=== PATIENT | female | born 1980 | race Caucasian/White ===

== ENCOUNTER → 2023-12-10 | Outpatient (CLI) | payer BC ==
[2023-12-10 17:03] LABS: HIV 1&2 SCREEN NEGATIVE (NEGATIVE)
[2023-12-10 17:10] LABS: HEPATITIS C VIRUS ABY INDEX < 0.02 INDEX (<0.8)
== END ==
LOC: M PLALAB 12:41
PROVIDERS: ATTEND Advanced Practice Midwife
DX: Z11.3 Encounter for screening for infections with a predominantly sexual mode of transmission (principal)

== ENCOUNTER → 2024-04-28 | Outpatient (CLI) | payer OTHER | LOC: M WHC 08:11 | PROVIDERS: ATTEND Family Medicine | DX: Z12.31 Encounter for screening mammogram for malignant neoplasm of breast (principal); R92.333 Mammographic heterogeneous density, bilateral breasts; N63.11 Unspecified lump in the right breast, upper outer quadrant; N63.42 Unspecified lump in left breast, subareolar ==

== ENCOUNTER → 2024-05-09 | Outpatient (CLI) | payer OTHER | LOC: M WHC 13:50 | PROVIDERS: ATTEND Family Medicine | DX: R92.8 Other abnormal and inconclusive findings on diagnostic imaging of breast (principal); N63.22 Unspecified lump in the left breast, upper inner quadrant; N63.11 Unspecified lump in the right breast, upper outer quadrant | CPT/HCPCS: 76641; 76642; 77066; G0279 ==

== ENCOUNTER → 2024-05-26 | Outpatient (CLI) | payer OTHER ==
[2024-05-26 08:32] VITALS: TEMP 98.6
[2024-05-26 09:26] VITALS: BP 110/78; O2SAT 100
== END ==
LOC: M WHCPRO 08:30
PROVIDERS: ATTEND Family Medicine
DX: R92.8 Other abnormal and inconclusive findings on diagnostic imaging of breast (principal); N63.21 Unspecified lump in the left breast, upper outer quadrant

== ENCOUNTER → 2024-06-01 | Outpatient (CLI) | payer OTHER | LOC: M RAD 06:32 | PROVIDERS: ATTEND Orthopaedic Surgery | DX: M23.303 Other meniscus derangements, unspecified medial meniscus, right knee (principal) ==

== ENCOUNTER 2024-09-20 10:21 | Day surgery (SDC) | payer BC, OTHER ==
[~2024-09-20] VITALS: Ht 170.2 cm; Wt 71.5 kg
[~2024-09-20 10:21] MED LIST: ONDA-83 PO
[2024-09-20] MEDS: SCOPOLAMINE 1MG TRANSDERMAL PATCH TOP ONE (10:54)
[2024-09-20] MEDS ORDERED: ROCURONIUM BROMIDE 50MG/5ML VIAL As Ordered ONE (11:53)
[2024-09-20] MEDS ORDERED: LIDOCAINE 2% 100 MG/5 ML SDV (FOR ANES.) As Ordered ONE (11:53)
[2024-09-20] MEDS ORDERED: MIDAZOLAM INJ 2 MG/2 ML VIAL As Ordered ONE (11:54)
[2024-09-20] MEDS: ONDANSETRON 4MG 2ML VIAL IV ONE (12:06)
[2024-09-20] MEDS ORDERED: dexAMETHasone 4 MG/ML 1 ML VIAL As Ordered ONE (13:13)
[2024-09-20] MEDS ORDERED: ONDANSETRON 4MG 2ML VIAL As Ordered ONE (13:13)
[2024-09-20] MEDS ORDERED: ACETAMINOPHEN 1000MG/100ML IV BAG As Ordered ONE (13:13)
[2024-09-20] MEDS ORDERED: KETOROLAC 30 MG/ML 1 ML VIAL As Ordered ONE (13:13)
[2024-09-20] MEDS: DOXYCYCLINE HYCLATE 100 MG TABLET PO ONE (14:00)
[2024-09-20] MEDS ORDERED: LR 1,000 ML IV SCH (14:00)
[2024-09-20] MEDS: ACETAMINOPHEN 500 MG TAB PO ONE (14:00)
[2024-09-20 14:56] VITALS: BP 101/60; TEMP 97.8; O2SAT 100
== END 2024-09-20 14:59 | disposition home or self-care (01) ==
LOC: M SDC 10:21
PROVIDERS: ATTEND Specialist
DX: O02.1 Missed abortion (principal)
CPT/HCPCS: 59820; 88305; J0131; J1100; J1885; J2250; J2405; J2765; J3010

== ENCOUNTER → 2024-10-13 | Outpatient (CLI) | payer OTHER, BC | LOC: M WHC 10:00 | PROVIDERS: ATTEND Family Medicine | DX: R92.8 Other abnormal and inconclusive findings on diagnostic imaging of breast (principal) | CPT/HCPCS: 76642; 77065; G0279 ==